=== PATIENT | female | born 1985 | race Caucasian/White ===

== ENCOUNTER → 2016-12-27 | Outpatient (CLI) | payer OTHER ==
[~2016-12-27] MED LIST: LEVOPOW36 PO; PROP40TA5 PO
--- NOTE | 2016-12-28 05:58 | PAP/PSG TECHNICIAN REPORT ---
[facility] Weather Anchor Polysomnogram Report Study name: None Report date: 12/28/2016 Study date: 12/27/2016 Referring Physician: Fidel ABRAMS M.D. Name: CYNTHIA YOHANNESKENIA SOTO Interpreting Physician: Marianela Abrams M.D. Date of : 1985 Weather Anchor: Galdino Blanco RPSGT. Sex: Female Age: 31 StudyType: PSG Weight: 330 lbs 15.5 inches Height: 31 years, Height 5' 7" Neck Circum: BMI: 51.68 Medications: FEOSOL 325 MG, INDERAL 40 MG, LEVOXYL 50 MCG Patient History PATIENT HAS HISTORY OF DIFFICULTY FALLING AND MAINTAING SLEEP. SHE USUALLY FEELS TIRED AND LACK OF ENERGY DURING THE DAY. SOMETIMES SHE WILL GET MORNING HEADACHES. SHE IS HERE TODAY FOR AN EVALUATION FOR BEBO. ESS = 14 RM 7 Parameters Monitored NPSG: E1-M2, E2-M1, Fp1-M2, Fp2-M1, F3-M2, F4-M2, F4-M1, C3-M2, C4-M2, C4-M1, O1-M2, O2-M2, O2-M1, T3-M2, T4-M1, P3-M2, P4-M1, CHIN1, CHIN2, HR, EKG, Legs, PFLOW, SNOR, FLOW, CFLOW, Tidal Volume, THOR, ABDO, SpO2, PLTH, CPRESS, ETCO2 Wave, ETCO2, pH Sleep Architecture Sleep Stages Time at Lights Off 10:33:41 PM STAGES Time (min.) TST (%) Time at Lights On 5:31:41 AM Wake 26.0 -- Total Recording Time (TRT) 416.50 min. N1 11.5 3 Total Sleep Period (TSP) 401.0 min. N2 209.0 54 Total Sleep Time (TST) 390.5min. N3 91.0 23 Awake Time 26.0 min. REM 79.0 20 Wake after Sleep Onset 12.0 min. Sleep Efficiency (SE) 94 % Sleep Onset Latency (CESAR) 15.5 min. Number of Stage 1 Shifts None Awakenings 14 Stage Changes 66 Number of REM periods 5 REM 79.0 20 REM Latency 70.0 min. NREM 311.5 80 Body Position Analysis Supine Right Left Side Prone Vertical Total Sleep Time (min.) 359.4 39.8 16.8 56.64 0.0 0.0 Total Sleep Time (%) 85% 10% 4% 15 0% N/A% Total Sleep Time REM (min.) 79.0 0.0 0.0 None 0.0 0.0 Total Sleep Time NREM (min.) 254.9 39.8 16.8 None 0.0 0.0 Intermittent Wake (min.) 25.5 0.5 0.0 None 0.0 0.0 Total Sleep Period (%) 86% None None None None None Arousals Myoclonus (PLM) * Events Count Index Events Count Index Spontaneous 13 2 Events Awake (PLMW) 11 25.4 Respiratory 1 0.3 Events Asleep w/ Arousal (PLMA) 0 0.0 PLM 0 0 Events Asleep w/o Arousal (PLMS) 18 2.8 Snoring 7 1 Total Asleep 18 2.8 Total 21 3 Total 29 4 Respiratory Analysis * CA OA MA CH H RERA Total Count 0 0 0 0 90 1 90 Index 0.0 0.0 0.0 0 13.8 0 14.0 Mean Duration 0.0 0.0 0.0 0.00 21.0 17.0 21.0 Longest Duration 0.0 0.0 0.0 0.00 0.0 17.0 38.8 Respiratory Event Summary Total Supine ~Supine Right Left Prone REM NREM Apneas Count 0 0 0 0 0 N/A 0 0 Index 0.0 0 0 0.0 0.0 N/A 0 0 Hypopneas (4% Desat) Count 90 88 2 2 0 N/A 72 18 Index 13.8 15.8 2 3.0 0.0 N/A 54.7 3.5 Apneas & All Hypopneas Count 90 88 2 2 0 N/A 72 18 Index 13.8 16 2 3 0 N/A 54.7 3.5 Respiratory Events (Merchandise Deliverer+All Hyp+RERA) Count 90 89 2 2 0 N/A 72 18 Index 14.0 16 2 3.0 0.0 N/A 54.7 3.7 Respiratory Related Arousal Count 1 89 0 0 0 N/A 1 1 Index 0.3 0 0 0 0 N/A 1 0 Snoring Analysis Supine Right Left Prone REM NREM Total Snore duration 55.5 min Snores count 2,176 540 188 N/A 515 2,389 2,904 Snore mean duration 1.1 Sec Snores index 391 813 671 N/A 391.1 460.2 446.2 TST with snoring (%) 14.2% SpO2 Analysis Total REM NREM Awake <50% 0.0 min. 0.0 min. 0.0 min. 0.0 min. 51 - 60% 0.0 min. 0.0 min. 0.0 min. 0.0 min. 61 - 70% 0.0 min. 0.0 min. 0.0 min. 0.0 min. 71 - 80% 0.4 min. 0.4 min. 0.0 min. 0.0 min. 81 - 90% 23.1 min. 21.2 min. 1.5 min. 0.4 min. 91 - 100% 392.9 min. 57.4 min. 309.9 min. 25.5 min. Average 94 93 95 96 Minimum SpO2 78 78 83 85 Desaturation Event Index 13.7 55.4 4.2 4.6 # Desat. Events below 89% 48 46 2 0 Time(%) with Saturation below 89% 3.1 2.9 0.1 0.1 Time(min.) with Saturation below 89% 12.7 12.2 0.2 0.3 Heart Rate Analysis End Tidal CO2 Analysis Min (bpm) Max (bpm) Average (bpm) TSP (mins) % of TSP Awake 68 104 81 Above 55 mmHg 0.0 0.0 NREM 62 111 75 50-55 mmHg 19.7 5.1 REM 63 106 81 45-50 mmHg 94.8 24.3 Overall 62 111 76 40-45 mmHg 96.0 24.6 35-40 mmHg 65.6 16.8 30-35 mmHg 30.2 7.7 Average ETCO2 0.3 Supplemental O2 Values Minimum O2 level: None Value Start Time End Time Weather Anchor Comments Mrs. Chawla slept in the supine, left and right positions. PVC's noted. Leg movements noted. No bruxism noted. Snoring was noted and scored as a 4 on a scale of 1 through 5. (0=no snoring, 5=snoring loud enough to be heard through a closed door or down the khan way) Mrs. Chawla awoke to use the restroom 0 times during the night. Mrs. Chawla stated I slept as well as I do when I am in my own bed. The final report will be interpreted and signed by a sleep physician. The completed physician report will then be placed in the patient medical record. Therapy (cm H2O) 0 TIB (min.) 416.5 TST (min.) 390.5 Sleep Onset (min.) 15.5 REM Onset From Sleep (min.) 70.0 Sleep Efficiency % 94 Wakefulness (%) 6 Wakefulness (min.) 26.0 NREM 1 (%) 3 NREM 1 (min.) 11.5 NREM 2 (%) 54 NREM 2 (min.) 209.0 NREM 3 (%) 23 NREM 3 (min.) 91.0 REM (%) 20 REM (min.) 79.0 # Arousals 21 Arousal Index 3 # Snore 2,904 Snore Index 446.2 AHI 13.8 AHI Supine 16 AHI Non-Supine 2 NREM AHI 3.5 REM AHI 54.7 RDI 14.0 # Obstructive Apnea 0 # Central Apnea 0 # Mixed Apnea 0 # Hypopneas 90 RERAs 1 Total Respiratory Events 92 Time Below SpO2 89% (min.) 12.5 Mean NREM SpO2 (%) 95 Mean REM SpO2 (%) 93 Mean Sleep SpO2 (%) 94 Min NREM SpO2 (%) 83 Min REM SpO2 (%) 78 Position Supine (min.) 359.4 Position Non-supine (min.) 56.6 LM Index Sleep 2.8 LM Index NREM 2.9 LM Index REM 2.3 Mean Heart Rate (bpm) 76 Min Heart Rate (bpm) 62
--- NOTE | 2017-01-06 16:02 | POLYSOMNOGRAPH REPORT ---
REFERRING PERSON: Dr. Cristiane Abrams. TECHNICAL SERVICES ANALYST: Galdino Blacno. Ms. Chawla is a 31-year-old female who has difficulty falling and maintaining sleep. She does have some morning headaches. She has some excessive daytime sleepiness. Her Irwin sleepiness scale score on the evening of this study is 14. BMI is 51.68. Following the technical and digital specifications of the [employer] [place] [employer] (AASM) a standard diagnostic polysomnogram was performed monitoring EEG, EOG, EMG (chin and leg deviations), oxygen saturation, body position, digital video, respiratory effort and airflow. The sleep Stage and event scoring was based on the AASM Manual for the Scoring of Sleep and Associated Events 2007 edition. Apneas are defined as a drop in the peak thermal sensor excursion by >90% of baseline for at least 10 seconds. Hypopneas were scored using the 4% oxygen desaturation rule (4A-[employer]) and a decrease in the nasal pressure excursions by >30% of baseline for at least 10 seconds. Respiratory effort-related arousal (RERA's) is defined as a sequence of breaths lasting at least 10 seconds characterized by increasing respiratory effort or flattening of the nasal pressure waveform leading to an arousal from sleep when the sequence of breaths does not meet criteria for an apnea or hypopnea. Apnea Hypopnea index (AHI) is defined as the number of apneas and hypopneas occurring in an hour of sleep. Respiratory disturbance index (RDI) is defined as the number of apneas, hypopneas, and RERA's occurring in an hour of sleep. Ms. Chawla total sleep period time was 401 minutes. Total sleep time was 390.5 minutes. Sleep efficiency was 94%. Latency to sleep onset was 15.5 minutes. Wake after sleep onset was 12 minutes. Total non-REM sleep time was 311.5 minutes. She spent 3% of that time in N1 sleep, 54% in N2 sleep and 23% in N3 sleep. REM latency was 70 minutes. Total REM sleep time was 79 minutes or 20% of total sleep time. There were 21 cortical arousals from sleep. 13 of these arousals were spontaneous, 7 were due to snoring and 1 was due to respiratory event. There were 18 periodic limb movements noted on this test. Limb movement index was 2.8 and limb movement with arousal index was 0. There were no central obstructive or mixed apneas on this test. There were 90 hypopneas. Apnea-hypopnea index was 13.8. Supine AHI was 16 and REM AHI was 54.7. This patient's respiratory events occurred almost exclusively in REM sleep. There were 2904 snoring events recorded. Total sleep time with snoring was 14.2%. Mean saturation was 94%. Desaturations to 80%-78% were noted. Saturations were less than 89% for 12.7 minutes of recorded time. There was no cardiac ectopy noted on this study other than occasional PVCs. Heart rates ranged from a low of 62 beats per minute to a high of 111 beats per minute during sleep. End-tidal CO2 was recorded on this test. End tidal CO2s were between 50 and 55 mmHg for 55.1% of total sleep period time, between 45 and 50 mmHg for 24.3%, between 40 and 45 mmHg for 24.6%, between 35 and 40 mmHg for 16.8% and between 30 and 35 mmHg for 7.7% of total sleep period time. IMPRESSION AND PLAN: 1. A 31-year-old female with evidence of mild sleep apnea with mild nocturnal hypoxemia on this sleep study. Her events occurred almost exclusively in REM sleep. 2. The patient would likely benefit from positive airway pressure therapy. She should return to sleep lab for a full night titration and then based on those results, be started on equipment at home. A download from her machine should be reviewed in 1 month both to check compliance as well as AHI and further pressure adjustments can occur at that time. 3. Alternatively, this patient could be started on auto-titrating CPAP with pressures of 5-15 cm. A download reviewed in 1 month and then the patient set on optimal pressure. Once on optimal pressure, an overnight oximetry should be performed to ensure hypoxemia resolves with CPAP alone. 4. Should this patient be unwilling or unable to tolerate CPAP therapy, she should be referred to ear, nose and throat or oral surgery/dental medicine (if appropriate) to discuss alternative treatments for sleep disordered breathing.
== END | disposition home or self-care (01) ==
LOC: C.NEUR 20:00
PROVIDERS: ATTEND Family Medicine
DX: G47.10 Hypersomnia, unspecified (principal); E66.01 Morbid (severe) obesity due to excess calories; Z68.43 Body mass index [BMI] 50.0-59.9, adult; G47.30 Sleep apnea, unspecified